=== PATIENT | female | born 1965 | race Hispanic/Latino ===

== ENCOUNTER 2017-06-16 08:26 | Emergency (ER) | payer MEDICARE ==
[2017-06-16 10:46] LABS: Hematocrit 38.4 % (30.3-42.9); Hemoglobin 12.6 gm/dl (10.1-14.3); Mean Corpuscular HGB Conc 33 % (30-34); Mean Corpuscular Hemoglobin 32 pg (28-32); Mean Corpuscular Volume 96 fl (79-97); White Blood Count 4.8 K/mm3 (4.5-11.0)
--- NOTE | 2017-06-16 10:49 | Emergency Department Report ---
HPI - General Chief Complaint: Abdominal Pain Time Seen by Provider: 06/16/17 10:15 - HPI HPI: Room 4 The patient is a 52-year-old female presenting with a chief complaint of ascites. The patient has a history of hepatitis C/cirrhosis states she came to the emergency department to obtain a paracentesis. The patient states she's had gradually increasing abdominal fullness since her last paracentesis (2016). Patient was to nausea but denies vomiting or diarrhea. Patient denies fever. Patient states she has her chronic back pain but denies any other pain Location: [See above] Duration: [See above] Quality: Fullness Severity: Moderate Modifying factors: [see above] Context: [see above] Mode of transportation: [not driving] ED Past Medical Hx - Past Medical History Additional medical history: Hep C, C3 injury cirrhosis - Surgical History Past Surgical History?: No Additional Surgical History: back surgery - Family History Family history: no significant - Social History Smoking Status: Current Every Day Smoker (1/2 pack per day) Substance Use Type: None (denies illicit drug use) - Medications Home Medications: Home Medications Medication Instructions Recorded Confirmed Last Taken Type Baclofen [Lioresal] 5 mg PO TID 30 Days tablet 04/14/17 05/26/17 05/25/17 Rx Furosemide [Lasix TAB] 20 mg PO QDAY #30 tablet 05/01/17 05/26/17 05/25/17 Rx Multivitamin Tab W-MINERAL 1 each PO QDAY #30 tablet 05/01/17 05/26/17 05/25/17 Rx [Multiple Vitamin/Mineral (Theragran M)] Spironolactone [Aldactone] 50 mg PO DAILY #30 tablet 05/01/17 05/26/17 05/25/17 Rx Dicyclomine [Bentyl] 10 mg PO QID PRN #20 capsule 05/26/17 Unknown Rx Famotidine [Pepcid] 20 mg PO BID #60 tablet 05/29/17 Unknown Rx Lactulose [Cephulac] 10 gm PO BID #1 bottle 05/29/17 Unknown Rx Levofloxacin [Levaquin TAB] 500 mg PO DAILY #3 tablet 05/29/17 Unknown Rx ED Review of Systems ROS: Stated complaint: ABDOMINAL SWELLING Other details as noted in HPI Constitutional: denies: fever Eyes: denies: eye pain ENT: denies: throat pain Cardiovascular: denies: chest pain Gastrointestinal: nausea, other (abdominal fullness). denies: abdominal pain, vomiting Genitourinary: denies: urgency Musculoskeletal: back pain Neurological: denies: headache Physical Exam - Physical Exam Vital Signs: Vital Signs 06/16/17 06/16/17 06/16/17 09:03 09:15 09:18 Temperature 98.2 F 98.2 F Pulse Rate 103 H 103 H Respiratory 18 18 18 Rate Blood Pressure 108/56 Blood Pressure 108/56 [Left] O2 Sat by Pulse 94 93 94 Oximetry Physical Exam: GENERAL: The patient is well-developed well-nourished female lying on stretcher in left lateral decubitus position not appearing to be in acute distress. [] HEENT: Normocephalic. Atraumatic. Extraocular motions are intact. Patient has moist mucous membranes. NECK: Supple. Trachea midline CHEST/LUNGS: Clear to auscultation. There is no respiratory distress noted. HEART/CARDIOVASCULAR: Regular. There is no tachycardia. There is no gallop rub or murmur. ABDOMEN: Abdomen is protuberant with massive ascites. SKIN: There is no rash. There is no diaphoresis. NEURO: The patient is awake, alert, and oriented. The patient is cooperative. The patient has normal speech MUSCULOSKELETAL: There is no evidence of acute injury. ED Course Vital Signs 06/16/17 06/16/17 06/16/17 09:03 09:15 09:18 Temperature 98.2 F 98.2 F Pulse Rate 103 H 103 H Respiratory 18 18 18 Rate Blood Pressure 108/56 Blood Pressure 108/56 [Left] O2 Sat by Pulse 94 93 94 Oximetry ED Medical Decision Making - Lab Data Result diagrams: 06/16/17 10:29 06/16/17 10:29 Laboratory Tests 06/16/17 06/16/17 06/16/17 10:29 10:29 10:29 WBC 4.8 RBC 4.00 Hgb 12.6 Hct 38.4 MCV 96 MCH 32 MCHC 33 RDW 17.0 H Plt Count 80 L [place] % (Auto) Technical Writer And Editor Add Manual Diff Complete Total Counted 100 Seg Neuts % (Manual) 76.0 H Band Neutrophils % 0 Lymphocytes % (Manual) 15.0 Reactive Lymphs % (Man) 0 Monocytes % (Manual) 7.0 Eosinophils % (Manual) 2.0 Basophils % (Manual) 0 Metamyelocytes % 0 Myelocytes % 0 Promyelocytes % 0 Blast Cells % 0 Nucleated RBC % Not Reportable Seg Neutrophils # Man 3.6 Band Neutrophils # 0.0 Lymphocytes # (Manual) 0.7 L Abs React Lymphs (Man) 0.0 Monocytes # (Manual) 0.3 Eosinophils # (Manual) 0.1 Basophils # (Manual) 0.0 Metamyelocytes # 0.0 Myelocytes # 0.0 Promyelocytes # 0.0 Blast Cells # 0.0 WBC Morphology Not Reportable Hypersegmented Neuts Not Reportable Hyposegmented Neuts Not Reportable Hypogranular Neuts Not Reportable Smudge Cells Not Reportable Toxic Granulation Not Reportable Toxic Vacuolation Not Reportable Dohle Bodies Not Reportable Pelger-Huet Anomaly Not Reportable Chris Rods Not Reportable Platelet Estimate Appears decreased Clumped Platelets Not Reportable Plt Clumps, EDTA Not Reportable Large Platelets Not Reportable Giant Platelets Not Reportable Platelet Satelliting Not Reportable Plt Morphology Comment Not Reportable RBC Morphology Not Reportable Dimorphic RBCs Not Reportable Polychromasia Few Hypochromasia Not Reportable Poikilocytosis Not Reportable Anisocytosis 1+ Microcytosis Not Reportable Macrocytosis Not Reportable Spherocytes Not Reportable Pappenheimer Bodies Not Reportable Sickle Cells Not Reportable Target Cells Not Reportable Tear Drop Cells Few Ovalocytes 1+ Helmet Cells Few Jensen-Guinda Bodies Not Reportable [place] Rings Not Reportable [place] Cells Rare Bite Cells Not Reportable Crenated Cell Not Reportable Elliptocytes 1+ Acanthocytes (Spur) Not Reportable Rouleaux Not Reportable Hemoglobin C Crystals Not Reportable Schistocytes Not Reportable Malaria parasites Not Reportable Simone Bodies Not Reportable Hem Pathologist Commnt No PT 16.2 H INR 1.23 H APTT 38.2 H Sodium 138 Potassium 3.5 L Chloride 102.8 Carbon Dioxide 25 Anion Gap 14 BUN 10 Creatinine 0.5 L Estimated GFR > 60 BUN/Creatinine Ratio 20 Glucose 89 Calcium 7.7 L Total Bilirubin 1.50 H AST 33 ALT 21 Alkaline Phosphatase 56 Total Protein 6.8 Albumin 2.3 L Albumin/Globulin Ratio 0.5 - Radiology Data Radiology results: report reviewed (ultrasound guided paracentesis) ULTRASOUND PARACENTESIS History: Ascites. Description of procedure: Informed consent was obtained. Sterile technique was utilized. 1% lidocaine for skin anesthesia. Using ultrasound guidance, a 5 Israeli centesis needle was advanced into the right lower quadrant peritoneal space. There was spontaneous return of yellow, slightly cloudy fluid. 18.1 L of fluid were aspirated and discarded. The patient was sent back to the emergency department in good condition. Impression: Successful ultrasound guided large volume paracentesis. Transcribed By: TTR Dictated By: SUE NG JR, MD Electronically Authenticated By: SUE NG JR, MD Signed Date/Time: 06/16/17 1345 - Differential Diagnosis ascites Critical care attestation.: If time is entered above; I have spent that time in minutes in the direct care of this critically ill patient, excluding procedure time. ED Disposition Clinical Impression: Ascites Disposition: DC-01 TO HOME OR SELFCARE Is pt being admited?: No Does the pt Need Aspirin: No Condition: Stable Instructions: Abdominal Pain (ED) Additional Instructions: Return to the emergency department immediately should you develop worsening symptoms, fever, inability to tolerate food or liquid or any other concerns. Referrals: PRIMARY CAREMD [Primary Care Provider] - 3-5 Days TANGELA THACKER MD [Staff Physician] - 3-5 Days Time of Disposition: 14:29
[2017-06-16 10:51] LABS: Platelet Count 80 K/mm3 (140-440)
[2017-06-16 10:58] LABS: INR 1.23 (0.87-1.13)
[2017-06-16 10:59] LABS: Partial Thromboplastin Time 38.2 Sec. (24.2-36.6)
[2017-06-16] MEDS ORDERED: ALBURX 25% (ALBUMIN) IV ONE (11:00)
[2017-06-16 11:04] LABS: Alanine Aminotransferase 21 units/L (7-56); Albumin 2.3 g/dL (3.9-5); Albumin/Globulin Ratio 0.5 %; Alkaline Phosphatase 56 units/L (35-129); Anion Gap 14 mmol/L; BUN/Creatinine Ratio 20; Blood Urea Nitrogen 10 mg/dL (7-17); Calcium 7.7 mg/dL (8.4-10.2); Carbon Dioxide 25 mmol/L (22-30); Chloride 102.8 mmol/L (98-107); Glucose 89 mg/dL (65-100); Potassium 3.5 mmol/L (3.6-5.0); Sodium 138 mmol/L (137-145); Total Protein 6.8 g/dL (6.3-8.2)
[2017-06-16 11:22] LABS: Anisocytosis 1+; Basophils % (Manual) 0 % (0.0-1.8); Blastocytes % (Manual) 0 %; Burr Cells Rare; Diff Status Complete; Elliptocytes 1+; Helmet Cells Few; Ovalocytes 1+; Platelet Estimate Appears Decreased; Polychromasia Few; Tear Drop Cells Few
--- NOTE | 2017-06-16 13:50 | Ultrasound Report ---
ULTRASOUND PARACENTESIS History: Ascites. Description of procedure: Informed consent was obtained. Sterile technique was utilized. 1% lidocaine for skin anesthesia. Using ultrasound guidance, a 5 Bengali centesis needle was advanced into the right lower quadrant peritoneal space. There was spontaneous return of yellow, slightly cloudy fluid. 18.1 L of fluid were aspirated and discarded. The patient was sent back to the emergency department in good condition. Impression: Successful ultrasound guided large volume paracentesis.
--- NOTE | 2017-06-16 14:41 | Procedure Note ---
Date of procedure: 06/16/17 Pre-op diagnosis: ascites Post-op diagnosis: same Procedure: US paracentesis Anesthesia: local Surgeon: SUE NG Estimated blood loss: none Pathology: none (120cc) Specimen disposition: discarded Condition: stable Disposition: other (back to ER)
[2017-06-16 16:00] VITALS: BP 149/71
== END 2017-06-16 15:30 | disposition home or self-care (01) ==
LOC: ED 08:26
DX: R18.8 Other ascites (principal); F17.200 Nicotine dependence, unspecified, uncomplicated
CPT/HCPCS: 36415; 49083; 80053; 85007; 85025; 85610; 85730; 96374; 99284; P9047

== ENCOUNTER 2017-06-24 19:31 | Inpatient (IN) | payer MEDICARE ==
[2017-06-24] MEDS ORDERED: LASIX IV ONE (20:33)
--- NOTE | 2017-06-24 20:33 | Emergency Department Report ---
ED General Adult HPI - General Chief complaint: Pain General Stated complaint: ABDOMINAL FLUID Time Seen by Provider: 06/24/17 20:21 Source: patient, EMS (ems notes not available at time of chart dictation), RN notes reviewed, old records reviewed Mode of arrival: Stretcher Limitations: Physical Limitation - History of Present Illness Initial comments: This is a 52-year-old female who is previously unknown to this provider. Past medical history includes cervical spine injury, studies, hepatitis C, history of IV drug abuse, patient has had multiple recent hospital admissions for therapeutic paracenteses for ascites that is massive and symptomatic. The patient was sent to the ER by her hospice nurse for therapeutic paracentesis. Patient reports that she's had abdominal swelling and discomfort. It has been present for 2 weeks. It is aching. It increases with palpation and range of motion, and decreases with rest and with paracentesis. The patient denies headache, neck pain, chest pain, urinary symptoms, with the exception of urinary frequency, which she indicates occurs when her abdomen gets too big. -: Gradual, week(s) Location: abdomen Quality: aching Consistency: constant Improves with: other (paracentesis) Worsens with: movement Associated Symptoms: shortness of breath (chronic) - Related Data Previous Rx's Medication Instructions Recorded Last Taken Type Baclofen [Lioresal] 5 mg PO TID 30 Days tablet 04/14/17 05/25/17 Rx Furosemide [Lasix TAB] 20 mg PO QDAY #30 tablet 05/01/17 05/25/17 Rx Multivitamin Tab W-MINERAL 1 each PO QDAY #30 tablet 05/01/17 05/25/17 Rx [Multiple Vitamin/Mineral (Theragran M)] Spironolactone [Aldactone] 50 mg PO DAILY #30 tablet 05/01/17 05/25/17 Rx Dicyclomine [Bentyl] 10 mg PO QID PRN #20 capsule 05/26/17 Unknown Rx Famotidine [Pepcid] 20 mg PO BID #60 tablet 05/29/17 Unknown Rx Lactulose [Cephulac] 10 gm PO BID #1 bottle 05/29/17 Unknown Rx Levofloxacin [Levaquin TAB] 500 mg PO DAILY #3 tablet 05/29/17 Unknown Rx Allergies Allergy/AdvReac Type Severity Reaction Status Date / Time morphine Allergy Unknown Verified 04/12/17 20:47 ED Review of Systems ROS: Stated complaint: ABDOMINAL FLUID Other details as noted in HPI Constitutional: denies: fever Eyes: denies: eye discharge ENT: denies: epistaxis Respiratory: shortness of breath Cardiovascular: denies: chest pain Gastrointestinal: abdominal pain Genitourinary: frequency Musculoskeletal: arthralgia Neurological: weakness Psychiatric: as per HPI ED Past Medical Hx - Past Medical History Hx Congestive Heart Failure: No Hx Diabetes: No Hx Headaches / Migraines: No Hx Asthma: No Hx COPD: No Hx HIV: No Additional medical history: Hep C, C3 injury cirrhosis - Surgical History Additional Surgical History: back surgery - Social History Smoking Status: Current Every Day Smoker Substance Use Type: None - Medications Home Medications: Home Medications Medication Instructions Recorded Confirmed Last Taken Type Baclofen [Lioresal] 5 mg PO TID 30 Days tablet 04/14/17 05/26/17 05/25/17 Rx Furosemide [Lasix TAB] 20 mg PO QDAY #30 tablet 05/01/17 05/26/17 05/25/17 Rx Multivitamin Tab W-MINERAL 1 each PO QDAY #30 tablet 05/01/17 05/26/17 05/25/17 Rx [Multiple Vitamin/Mineral (Theragran M)] Spironolactone [Aldactone] 50 mg PO DAILY #30 tablet 05/01/17 05/26/17 05/25/17 Rx Dicyclomine [Bentyl] 10 mg PO QID PRN #20 capsule 05/26/17 Unknown Rx Famotidine [Pepcid] 20 mg PO BID #60 tablet 05/29/17 Unknown Rx Lactulose [Cephulac] 10 gm PO BID #1 bottle 05/29/17 Unknown Rx Levofloxacin [Levaquin TAB] 500 mg PO DAILY #3 tablet 05/29/17 Unknown Rx ED Physical Exam - General Limitations: Physical Limitation General appearance: alert, in no apparent distress, obese - Head Head exam: Present: atraumatic, normocephalic - Eye Eye exam: Present: normal appearance - ENT ENT exam: Present: normal exam, normal orophraynx, mucous membranes moist, normal external ear exam - Neck Neck exam: Present: normal inspection, full ROM - Respiratory Respiratory exam: Present: normal lung sounds bilaterally. Absent: respiratory distress - Cardiovascular Cardiovascular Exam: Present: regular rate, normal rhythm, normal heart sounds. Absent: systolic murmur, diastolic murmur, rubs, gallop - GI/Abdominal GI/Abdominal exam: Present: soft, distended. Absent: tenderness, guarding, rebound, rigid - Extremities Exam Extremities exam: Present: normal inspection, normal capillary refill, pedal edema. Absent: calf tenderness - Back Exam Back exam: Present: normal inspection, full ROM. Absent: tenderness, CVA tenderness (R), paraspinal tenderness, vertebral tenderness - Neurological Exam Neurological exam: Present: alert, oriented X3, CN II-XII intact, other ( Extraocular movements intact. Tongue midline. No facial droop. Facial sensation intact to light touch in the V1, V2, V3 distribution bilaterally. 5 and 5 strength in 4 extremities.. Sensation is intact to light touch in 4 extremities.). Absent: motor sensory deficit - Psychiatric Psychiatric exam: Present: normal affect, normal mood - Skin Skin exam: Present: warm, dry, intact, normal color. Absent: rash ED Course Vital Signs 06/24/17 06/24/17 06/24/17 19:46 19:57 20:00 Temperature 97.7 F Pulse Rate 97 H 93 H Respiratory 22 19 Rate Blood Pressure 107/59 107/59 O2 Sat by Pulse 95 96 97 Oximetry 06/24/17 06/24/17 06/24/17 20:30 21:00 21:30 Temperature Pulse Rate 97 H 95 H 95 H Respiratory 17 22 19 Rate Blood Pressure 102/63 102/63 92/50 O2 Sat by Pulse 96 94 95 Oximetry - Reevaluation(s) Reevaluation #1: 06/24/17 22:03 Dr Abrams accepts patient to medical service ED Medical Decision Making - Lab Data Result diagrams: 06/24/17 21:01 06/24/17 21:01 Vital Signs 06/24/17 06/24/17 06/24/17 19:46 19:57 20:00 Temperature 97.7 F Pulse Rate 97 H 93 H Respiratory 22 19 Rate Blood Pressure 107/59 107/59 O2 Sat by Pulse 95 96 97 Oximetry 06/24/17 06/24/17 06/24/17 20:30 21:00 21:30 Temperature Pulse Rate 97 H 95 H 95 H Respiratory 17 22 19 Rate Blood Pressure 102/63 102/63 92/50 O2 Sat by Pulse 96 94 95 Oximetry Lab Results 06/24/17 06/24/17 06/24/17 Range/Units 21:01 21:01 21:01 WBC 5.2 (4.5-11.0) K/mm3 RBC 4.00 (3.65-5.03) M/mm3 Hgb 12.9 (10.1-14.3) gm/dl Hct 38.4 (30.3-42.9) % MCV 96 (79-97) fl MCH 32 (28-32) pg MCHC 34 (30-34) % RDW 17.8 H (13.2-15.2) % PT 15.9 H (12.2-14.9) Sec. INR 1.20 H (0.87-1.13) APTT 36.0 (24.2-36.6) Sec. Sodium 135 L (137-145) mmol/L Potassium 4.4 (3.6-5.0) mmol/L Chloride 101.7 (98-107) mmol/L Carbon Dioxide 24 (22-30) mmol/L Anion Gap 14 mmol/L BUN 11 (7-17) mg/dL Creatinine 0.6 L (0.7-1.2) mg/dL Estimated GFR > 60 ml/min BUN/Creatinine Ratio 18 % Glucose 100 (65-100) mg/dL Calcium 7.7 L (8.4-10.2) mg/dL NT-Pro-B Natriuret Pep 50.40 (0-900) pg/mL - Radiology Data Radiology results: image reviewed interpreted by me: X-ray of the chest demonstrates elevated right hemidiaphragm, no acute disease, atelectasis noted - Medical Decision Making Differential diagnosis, including not limited to: Symptomatic ascites, volumeoverload, chronic hepatic disease, Assessment and plan: 52-year-old female who is known to this provider, who presents to the ER with ascites that is symptomatic. She has no shortness of breath that is new or different and she is not hypoxic, but her volume impedes her mobility. She has a lot of difficulty walking secondary to her massive ascites. Since the patient cannot walk secondary to her volume overload, she cannot be discharged. She is saturating well at this time, and is in no respiratory distress and is speaking on a cellular phone. Interventional radiology is not available for consultation this evening. Last time patient presented under my care, she had 14-16 L drained, required albumin. Patient will therefore be admitted for interventional radiology and paracentesis. Critical care attestation.: If time is entered above; I have spent that time in minutes in the direct care of this critically ill patient, excluding procedure time. ED Disposition Clinical Impression: Abdominal distention, Liver cirrhosis, Ascites Disposition: OP ADMIT IP TO THIS HOSP Is pt being admited?: Yes Condition: Good
[2017-06-24 21:19] LABS: Hematocrit 38.4 % (30.3-42.9); Hemoglobin 12.9 gm/dl (10.1-14.3); Mean Corpuscular HGB Conc 34 % (30-34); Mean Corpuscular Hemoglobin 32 pg (28-32); Mean Corpuscular Volume 96 fl (79-97); Red Cell Distribution Width 17.8 % (13.2-15.2); White Blood Count 5.2 K/mm3 (4.5-11.0)
[2017-06-24 21:30] LABS: INR 1.2 (0.87-1.13)
[2017-06-24 21:38] LABS: Anion Gap 14 mmol/L; BUN/Creatinine Ratio 18; Blood Urea Nitrogen 11 mg/dL (7-17); Calcium 7.7 mg/dL (8.4-10.2); Carbon Dioxide 24 mmol/L (22-30); Chloride 101.7 mmol/L (98-107); Glucose 100 mg/dL (65-100); Potassium 4.4 mmol/L (3.6-5.0); Sodium 135 mmol/L (137-145)
--- NOTE | 2017-06-24 22:08 | XRay Report ---
FINAL REPORT PROCEDURE: XR CHEST 1V AP TECHNIQUE: Chest radiograph anteroposterior view. CPT 76654 HISTORY: edema, ascites COMPARISON: 05/17/2017. FINDINGS: Heart: Normal. Mediastinum/Vessels: Normal. Lungs/Pleural space: Subsegmental atelectatic changes are noted in the right lower lung with moderately elevated right hemidiaphragm. Left lung and bilateral pleural spaces are clear.. Bony thorax: No acute osseous abnormality. Life support devices: None. IMPRESSION: No obvious acute pulmonary process..
[2017-06-24] MEDS ORDERED: ZOFRAN IV PRN (22:20)
[2017-06-24 22:21] LABS: Platelet Count 75 K/mm3 (140-440)
--- NOTE | 2017-06-25 06:10 | History and Physical Report ---
CHIEF COMPLAINT: Abdominal swelling. HISTORY OF PRESENT ILLNESS: The patient is a 52-year-old female with history of cirrhosis of the liver, hepatitis C and ascites , and was sent in by her hospice nurse for therapeutic paracentesis following abdominal swelling and discomfort. There is no history of fever or chills. No history of shortness of breath. The patient stated the abdominal swelling increases with palpation and movement and decreases with rest and paracentesis. There is no history of chest pain. PAST MEDICAL HISTORY: Pertinent for hepatitis C, cirrhosis of the liver, ascites, cervical 3 vertebral injury. PAST SURGICAL HISTORY: Pertinent for back surgery and recurrent abdominal paracentesis. FAMILY HISTORY: Noncontributory. SOCIAL HISTORY: The patient is on hospice, smokes cigarettes every day. Does not drink or use illicit drugs. MEDICATIONS: The patient is on baclofen 5 mg by mouth 3 times daily, Lasix 20 mg by mouth daily, multivitamin 1 mg every day, Aldactone 50 mg by mouth daily, dicyclomine 10 mg by mouth 4 times daily, Pepcid 20 mg by mouth twice daily, lactulose 10 grams p.o. b.i.d., Levaquin 500 mg p.o. daily. ALLERGIES: THE PATIENT IS ALLERGIC TO MORPHINE. REVIEW OF SYSTEMS: CONSTITUTIONAL: There is no fever, no chills, no diaphoresis HEENT: There is no headache or sore throat. CARDIOVASCULAR: There is no chest pain or orthopnea. RESPIRATORY: There is no shortness of breath or cough. GASTROINTESTINAL: Abdominal swelling noted and abdominal distention was noted. No nausea, no vomiting, no diarrhea or constipation. NEUROLOGICAL: No numbness, no dizziness, no change in mental status., MUSCULOSKELETAL: There is no skeletal joint pain or swelling. DERMATOLOGICAL: There is no skin rash or itching. GENITOURINARY: There is no dysuria, hematuria or flank pain. Rest of system review is normal. PHYSICAL EXAMINATION: GENERAL: At the time of exam, the patient was found to be alert, oriented x 3 and in mild distress due to abdominal swelling. VITAL SIGNS: Shows normal temperature of 98.5 degrees Fahrenheit, pulse of 102, respiration 24, blood pressure 93/39, O2 sat of 95 on room air. HEENT: Showed pupils to be equal, round, reactive to light. Extraocular muscles are intact. NECK: Supple with no JVD or carotid bruit. CARDIOVASCULAR: Showed normal first and second heart sounds, no gallops or murmurs. RESPIRATORY: Show good air entry on both sides of the lungs with no abnormal breath sounds. GASTROINTESTINAL: Showed abdomen to be swollen with a generalized tenderness with no guarding and no rigidity. NEUROLOGICAL: Shows no focal deficits. MUSCULOSKELETAL SYSTEM: Show no joint swelling or tenderness. DERMATOLOGICAL SYSTEM: Show no skin rash. GENITOURINARY: Showing no costovertebral angle tenderness. PERTINENT LABORATORY AND IMAGING STUDIES: The patient had chest done that shows no acute cardiopulmonary lesion. The patient's lab test shows CBC with normal hemoglobin, normal hematocrit and low platelet count of 75,000. Coagulation studies show slight increase in PT of 15.9 with INR of 1.2. Chemistry shows a low sodium of 135. IMAGING STUDIES: The patient had chest x-ray done that shows no active cardiopulmonary lesions. DIAGNOSES: 1. Ascites. 2. Abdominal pain. PLAN: The patient will be admitted to medical floor. The patient will be on IV Zofran 4 mg every 4 hours as needed for nausea and vomiting and will have ultrasound-guided abdominal paracentesis for reduction of the abdominal swelling due to ascites. The patient will be on her home medications as shown in the medication reconciliation section that also contains lactulose and some pain medications. The patient's diet will be regular diet. JOB# [id number] [facility]/BENY LORENZANA
[2017-06-25] MEDS: LIORESAL PO SCH ×3 (08:40→23:04)
[2017-06-25] MEDS: ALDACTONE PO SCH (09:08)
[2017-06-25] MEDS ORDERED: HEPARIN SUB-Q SCH (10:00)
[2017-06-25] MEDS ORDERED: ALBURX 25% (ALBUMIN) IV ONE ×2 (10:41→19:00)
[2017-06-25] MEDS ORDERED: LASIX IV ONE (10:42)
[2017-06-25] MEDS: THERAGRAN-M Tab PO SCH (12:00)
[2017-06-25] MEDS: PEPCID PO SCH ×2 (12:00→23:04)
[2017-06-25] MEDS: CEPHULAC PO SCH ×2 (12:00→23:03)
--- NOTE | 2017-06-25 12:18 | Progress Note ---
Assessment and Plan Assessment and plan: 52-year-old female with past medical history significant for chronic hep C, chronic liver disease, refractory ascites presented to the emergency department for complaints of ascites is getting worse and put pressure on the abdomen and patient not able to ambulate Refractory massive ascites - Patient was given IV Lasix - Going to give her albumin and give another dose of Lasix, blood pressure is marginal - Consulted IR for paracentesis Chronic hep C - Has been followed by GI - Have an appointment with Dr. Starr on Monday for referral DVT prophylaxis - SCDs because of her INR is slightly elevated Disposition - Patient will be discharged once she get paracentesis. History Interval history: Patient was seen and evaluated this morning, she is complaining of back and abdominal pain due to the pressure from massive ascites. Hospitalist Physical - Physical exam Narrative exam: Not in cardiopulmonary distress. The patient appeared well nourished and normally developed. Vital signs as documented. Head exam is unremarkable. No scleral icterus . Neck is without jugular venous distension, thyromegaly, or carotid bruits. Lungs are clear to auscultation. Cardiac exam reveals regular rate and Rhythm. First and second heart sounds normal. No murmurs, rubs or gallops. Abdominal exam reveals tense ascites. Extremities are nonedematous and both femoral and pedal pulses are normal. AUTO HAULER: Alert and oriented 3. No focal weakness. - Constitutional Vitals: Temp Pulse Resp BP Pulse Ox 98.3 F 101 H 20 83/26 93 06/25/17 07:40 06/25/17 11:41 06/25/17 07:40 06/25/17 11:41 06/25/17 11:41 Results - Labs CBC & Chem 7: 06/24/17 21:01 06/24/17 21:01 Labs: Laboratory Last Values WBC 5.2 K/mm3 (4.5-11.0) 06/24/17 21:01 RBC 4.00 M/mm3 (3.65-5.03) 06/24/17 21:01 Hgb 12.9 gm/dl (10.1-14.3) 06/24/17 21:01 Hct 38.4 % (30.3-42.9) 06/24/17 21:01 MCV 96 fl (79-97) 06/24/17 21:01 MCH 32 pg (28-32) 06/24/17 21:01 MCHC 34 % (30-34) 06/24/17 21:01 RDW 17.8 % (13.2-15.2) H 06/24/17 21:01 Plt Count 75 K/mm3 (140-440) L 06/24/17 21:01 PT 15.9 Sec. (12.2-14.9) H 06/24/17 21:01 INR 1.20 (0.87-1.13) H 06/24/17 21:01 APTT 36.0 Sec. (24.2-36.6) 06/24/17 21:01 Sodium 135 mmol/L (137-145) L 06/24/17 21:01 Potassium 4.4 mmol/L (3.6-5.0) 06/24/17 21:01 Chloride 101.7 mmol/L (98-107) 06/24/17 21:01 Carbon Dioxide 24 mmol/L (22-30) 06/24/17 21:01 Anion Gap 14 mmol/L 06/24/17 21:01 BUN 11 mg/dL (7-17) 06/24/17 21:01 Creatinine 0.6 mg/dL (0.7-1.2) L 06/24/17 21:01 Estimated GFR > 60 ml/min 06/24/17 21:01 BUN/Creatinine Ratio 18 % 06/24/17 21:01 Glucose 100 mg/dL (65-100) 06/24/17 21:01 Calcium 7.7 mg/dL (8.4-10.2) L 06/24/17 21:01 NT-Pro-B Natriuret Pep 50.40 pg/mL (0-900) 06/24/17 21:01
--- NOTE | 2017-06-25 13:21 | Procedure Note ---
Date of procedure: 06/25/17 Pre-op diagnosis: ascites Post-op diagnosis: same Procedure: US paracentesis Anesthesia: local Surgeon: SUE NG Estimated blood loss: none Pathology: list (120cc) Specimen disposition: to lab Condition: stable Disposition: floor
[2017-06-25 17:06] LABS: Basophils Body Fluid 0 %; Reactive Lymph Body Fluid 0 %
--- NOTE | 2017-06-26 07:58 | Ultrasound Report ---
ULTRASOUND PARACENTESIS History: Ascites. Description of procedure: Informed consent was obtained. Sterile technique was utilized. 1% lidocaine for skin anesthesia. Using ultrasound guidance, a 5 [place] centesis needle was advanced into the right lower quadrant peritoneal space. Spontaneous return of yellow, slightly cloudy fluid was noted. 16.1 L of fluid was aspirated. 120 cc of fluid was sent to laboratory for analysis. No complications. Impression: Successful large volume ultrasound-guided paracentesis.
[2017-06-26] MEDS: LIORESAL PO SCH ×2 (08:00→15:04)
[2017-06-26 08:36] VITALS: BP 103/49
--- NOTE | 2017-06-26 09:39 | Discharge Summary ---
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 Patient has been admitted previously for the same complaints and as a time cytology was done, negative for malignancy , paracentesis was done and discharged. Patient said she has an appointment with Dr. Starr tomorrow, and she said he will refer me to [place] for shunt. The patient had paracentesis yesterday and about 16.5 L of fluid was drained, patient was given albumin to keep her BP within normal limits. Patient tolerates the procedure well. The distention and the pain subsided, patient was discharged home with advice to continue her medications. Patient's questions and concerns were addressed at the bedside. Disposition: - TO HOME OR SELFCARE Time spent for discharge: 31 minutes - Discharge Diagnoses (1) Abdominal distention Status: Acute (2) Ascites Status: Chronic (3) Liver cirrhosis Status: Chronic (4) Hepatitis C infection Status: Chronic Core Measure Documentation - Palliative Care Palliative Care/ Comfort Measures: Not Applicable - Core Measures Any of the following diagnoses?: none Exam - Physical Exam Narrative exam: Not in cardiopulmonary distress. The patient appeared well nourished and normally developed. Vital signs as documented. Head exam is unremarkable. No scleral icterus . Neck is without jugular venous distension, thyromegaly, or carotid bruits. Lungs are clear to auscultation. Cardiac exam reveals regular rate and Rhythm. First and second heart sounds normal. No murmurs, rubs or gallops. Abdominal exam reveals ascites, soft non tender. Extremities are nonedematous and both femoral and pedal pulses are normal. 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 No focal weakness. - Constitutional Vitals: Temp Pulse Resp BP Pulse Ox 98.0 F 95 H 20 103/49 94 06/26/17 08:15 06/26/17 08:15 06/26/17 08:15 06/26/17 08:15 06/26/17 08:15 Plan Activity: no restrictions Weight Bearing Status: Full Weight Bearing Diet: low salt Additional Instructions: Please Schedule @[facility] in 2 weeks. Patient scheduled to see JHONATHAN Starr 06/26/17 Follow up with: PRIMARY CARE, [Primary Care Provider] - 3-5 Days
[2017-06-26] MEDS: ALDACTONE PO SCH (11:53)
[2017-06-26] MEDS: CEPHULAC PO SCH (11:54)
[2017-06-26] MEDS: THERAGRAN-M Tab PO SCH (11:54)
[2017-06-26] MEDS: PEPCID PO SCH (11:54)
== END 2017-06-26 13:30 | disposition hospice, home (50) | DRG 433 ==
LOC: ED 19:31 → 3A 22:16
PROVIDERS: ADMIT Internal Medicine; ATTEND Internal Medicine
PROC: 0W9G3ZZ Drainage of Peritoneal Cavity, Percutaneous Approach (ICD-10-PCS; principal; 2017-06-25)
DX: K74.60 Unspecified cirrhosis of liver (principal); R18.8 Other ascites; B18.2 Chronic viral hepatitis C; K76.89 Other specified diseases of liver; F17.200 Nicotine dependence, unspecified, uncomplicated; Z88.5 Allergy status to narcotic agent
CPT/HCPCS: 36415; 49083; 71010; 80048; 82040; 83880; 85027; 85610; 85730; 88112; 88305; 88341; 88342; 89051; 96374; J1940; P9047